=== PATIENT | male | born 1995 | race Caucasian/White ===

== ENCOUNTER → 2023-09-07 | Outpatient (CLI) | payer OTHER | END | disposition home or self-care (01) | LOC: SHCH 08:06 | PROVIDERS: ATTEND Student in an Organized Health Care Education/Training Program | DX: R07.9 Chest pain, unspecified (principal) | CPT/HCPCS: 93306 ==

== ENCOUNTER → 2024-03-22 | Outpatient (CLI) | payer OTHER ==
--- NOTE | 2024-03-22 10:09 | HMCIMG ---
US ABDOMINAL COMPLETE HISTORY: Pain COMPARISON: None TECHNIQUE: Multiple transverse and longitudinal ultrasound images of the abdomen were obtained. FINDINGS: Abdominal aorta and inferior vena cava are unremarkable. The visualized portion of the pancreas is within normal limits. Liver is echogenic consistent with liver parenchymal disease. No gallstone is seen. Common duct measures 4 mm. No evidence of gallbladder wall thickening is seen. Both kidneys are seen. Right kidney measures 9.5 x 4.6 x 5 cm. Left kidney measures 10.7 x 5.1 x 5.5 cm. No hydronephrosis is seen of the both kidneys. The spleen is grossly unremarkable. IMPRESSION: 1. No gallstone or ductal dilatation is seen. 2. No hydronephrosis is seen.
--- NOTE | 2024-03-22 14:18 | HMCIMG ---
NM HIDA WITH EF/CCK REASON: RIGHT UPPER QUADRANT PAIN. COMPARISON: None TECHNIQUE: Hepatobiliary imaging study was performed with 7 mCi of technetium Choletec through intravenous route. Gallbladder ejection fraction study was performed with 2.6 mcg of CCK through intravenous route. FINDINGS: There is normal visualization of gallbladder and bowel activity within 1 hour. Gallbladder ejection fraction is within normal limits at 46%. IMPRESSION: Normal hepatobiliary imaging study. Normal gallbladder ejection fraction at 46%.
== END | disposition home or self-care (01) ==
LOC: RAH 09:28
PROVIDERS: ATTEND Internal Medicine Gastroenterology
DX: R10.11 Right upper quadrant pain (principal)
CPT/HCPCS: 78227; 76700; A9537